=== PATIENT | male | born 1965 | race Caucasian/White ===

== ENCOUNTER 2018-11-21 21:35 | Inpatient (IN) | payer OTHER ==
[2018-11-21] MEDS ORDERED: ACETAMINOPHEN 325 MG TAB PO (22:30)
[2018-11-21] MEDS ORDERED: hydrALAzine 20 MG INJ IV (22:30)
[2018-11-21] MEDS ORDERED: GLUCAGON 1 MG INJ IM (23:00)
[2018-11-21] MEDS ORDERED: DEXTROSE 50% 50 ML SYRINGE IV ×2 (23:00)
[2018-11-21] MEDS ORDERED: GLUCOSE GEL 15 GRAM TUBE BUCCAL (23:00)
[2018-11-21] MEDS ORDERED: GLUCOSE GEL 15 GRAM TUBE PO ×2 (23:00)
[2018-11-21] MEDS: MAGNESIUM OXIDE 400 MG TAB PO (23:30)
[2018-11-21] MEDS: ATORVASTATIN 10 MG TAB PO (23:30)
[2018-11-21] MEDS: FAMOTIDINE 20 MG TAB PO (23:30)
[2018-11-21] MEDS: METOPROLOL 100 MG TAB PO (23:31)
[2018-11-21] MEDS: LEVETIRACETAM 500 MG TAB PO (23:31)
[2018-11-22 00:01] LABS: ADD UMIC YES; UR ASCORBIC ACID NEGATIVE (NEGATIVE); UR BACTERIA FEW /HPF (NONE SEEN); UR BILIRUBIN (Dip) NEGATIVE (NEGATIVE); UR BLOOD (Dip) NEGATIVE (NEGATIVE); UR CLARITY CLEAR (CLEAR); UR COLOR STRAW (YELLOW); UR GLUCOSE (Dip) 1+ mg/dL (NEGATIVE); UR KETONES (Dip) NEGATIVE (NEGATIVE); UR LEUKOCYTE ESTERASE (Dip) NEGATIVE Leu/ul (NEGATIVE); UR NITRITE (Dip) NEGATIVE (NEGATIVE); UR RBC 0 /HPF (0-5); UR SPECIFIC GRAVITY (Dip) 1.008 (1.003-1.030); UR TOTAL PROTEIN (Dip) 2+ mg/dl (NEGATIVE); UR UROBILINOGEN (Dip) NEGATIVE (NEGATIVE); UR WBC 0 /HPF (0-5)
[2018-11-22] MEDS: ACCU-CHEK XX (02:00)
[2018-11-22 06:19] LABS: ADD MAN DIFF? NO
[2018-11-22 06:40] LABS: WHITE BLOOD COUNT 12.3 10^3/ul (4.8-10.8)
[2018-11-22 06:40] LABS: BASOPHIL # 0.1 10^3/ul (0.0-0.1); BASOPHILS % 0.8 % (0.0-2.0); EOSINOPHILS # 0.7 10^3/ul (0.0-0.5); EOSINOPHILS % 5.4 % (0.0-7.0); HEMOGLOBIN 11.8 g/dl (14.0-18.0); LYMPHOCYTES % 23.9 % (15.0-51.0); MEAN CORPUSCULAR HEMOGLOBIN 29.5 pg (29.0-33.0); MEAN CORPUSCULAR HGB CONC 36.9 g/dl (32.0-37.0); MEAN PLATELET VOLUME 9.5 fl (7.4-10.4); MONOCYTES % 8.4 % (0.0-11.0); NEUTROPHIL # 7.6 10^3/ul (1.6-7.5); NEUTROPHILS % 61.3 % (39.0-77.0); PLATELET COUNT 179 10^3/UL (140-415); RED CELL DISTRIBUTION WIDTH 11.8 % (11.5-14.5)
[2018-11-22 06:50] LABS: HEMOGLOBIN A1C 8.4 % (0-5.9)
[2018-11-22] MEDS ORDERED: glipiZIDE 5 MG TAB GTB (07:05)
[2018-11-22 07:19] LABS: ALANINE AMINOTRANSFERASE 28 IU/L (13-69); ALBUMIN 3.4 g/dl (3.3-4.9); ALBUMIN/GLOBULIN RATIO 0.87; ALKALINE PHOSPHATASE 82 IU/L (42-121); ANION GAP 8 (5-13); ASPARTATE AMINO TRANSFERASE 26 IU/L (15-46); BILIRUBIN,INDIRECT 0.4 mg/dl (0-1.1); BILIRUBIN,TOTAL 0.4 mg/dl (0.2-1.3); BLOOD UREA NITROGEN 12 mg/dl (7-20); CARBON DIOXIDE 30 mmol/L (21-31); CHLORIDE 96 mmol/L (97-110); CREATININE 0.68 mg/dl (0.61-1.24); Estimated GFR > 60 mL/min (>60); GLUCOSE 168 mg/dl (70-220); SODIUM 134 mmol/L (135-144); TOTAL PROTEIN 7.3 g/dl (6.1-8.1)
[2018-11-22] MEDS: METOPROLOL 100 MG TAB PO ×2 (07:19→21:02)
[2018-11-22] MEDS: metFORMIN 500 MG TAB PO ×2 (07:57→17:40)
[2018-11-22] MEDS: INSULIN ASPART [NOVOLOG] 3 ML PEN SC ×4 (07:59→20:58)
[2018-11-22] MEDS: MAGNESIUM OXIDE 400 MG TAB PO ×2 (08:52→21:02)
[2018-11-22] MEDS: HYDROCHLOROTHIAZIDE 12.5 MG CAP PO (08:54)
[2018-11-22] MEDS: DOCUSATE SODIUM 100 MG CAP PO ×2 (08:55→21:01)
[2018-11-22] MEDS: LEVETIRACETAM 500 MG TAB PO ×2 (08:55→21:02)
[2018-11-22] MEDS: AMLODIPINE 10 MG TAB PO (08:55)
[2018-11-22] MEDS: FAMOTIDINE 20 MG TAB PO ×2 (08:55→21:02)
[2018-11-22] MEDS: ATORVASTATIN 10 MG TAB PO (21:02)
[2018-11-22] MEDS: SENNA TAB PO (21:02)
[2018-11-22] MEDS: VITAMIN A & D 5 GM OINT PACKET TOP (21:03)
[2018-11-23] MEDS: ACCU-CHEK XX (02:07)
[2018-11-23] MEDS: metFORMIN 500 MG TAB PO ×2 (07:37→17:14)
[2018-11-23] MEDS: INSULIN ASPART [NOVOLOG] 3 ML PEN SC ×4 (07:39→20:33)
[2018-11-23] MEDS: METOPROLOL 100 MG TAB PO ×2 (08:07→20:31)
[2018-11-23] MEDS: DOCUSATE SODIUM 100 MG CAP PO ×2 (08:07→20:30)
[2018-11-23] MEDS: HYDROCHLOROTHIAZIDE 12.5 MG CAP PO (08:07)
[2018-11-23] MEDS: MAGNESIUM OXIDE 400 MG TAB PO ×2 (08:07→20:30)
[2018-11-23] MEDS: VITAMIN A & D 5 GM OINT PACKET TOP ×2 (08:07→20:30)
[2018-11-23] MEDS: LEVETIRACETAM 500 MG TAB PO ×2 (08:07→20:30)
[2018-11-23] MEDS: AMLODIPINE 10 MG TAB PO (08:08)
[2018-11-23] MEDS ORDERED: ZOLPIDEM 5 MG TAB PO (08:30)
[2018-11-23] MEDS: FAMOTIDINE 20 MG TAB PO ×2 (09:53→20:30)
[2018-11-23] MEDS: ATORVASTATIN 10 MG TAB PO (20:30)
[2018-11-23] MEDS: SENNA TAB PO (20:30)
[2018-11-24] MEDS: ACCU-CHEK XX ×4 (02:11→21:00)
[2018-11-24] MEDS: metFORMIN 500 MG TAB PO ×2 (07:43→17:40)
[2018-11-24] MEDS: INSULIN ASPART [NOVOLOG] 3 ML PEN SC ×4 (07:46→20:24)
[2018-11-24] MEDS: DOCUSATE SODIUM 100 MG CAP PO ×2 (08:31→20:18)
[2018-11-24] MEDS: MAGNESIUM OXIDE 400 MG TAB PO ×2 (08:32→20:18)
[2018-11-24] MEDS: LINAGLIPTIN 5 MG TABLET PO (08:32)
[2018-11-24] MEDS: FAMOTIDINE 20 MG TAB PO ×2 (08:32→20:18)
[2018-11-24] MEDS: LEVETIRACETAM 500 MG TAB PO ×2 (08:32→20:17)
[2018-11-24] MEDS: AMLODIPINE 10 MG TAB PO (08:32)
[2018-11-24] MEDS: METOPROLOL 100 MG TAB PO ×2 (08:33→20:19)
[2018-11-24] MEDS: HYDROCHLOROTHIAZIDE 12.5 MG CAP PO (08:33)
[2018-11-24] MEDS: VITAMIN A & D 5 GM OINT PACKET TOP ×2 (08:33→20:19)
[2018-11-24] MEDS: SENNA TAB PO (20:17)
[2018-11-24] MEDS: ATORVASTATIN 10 MG TAB PO (20:18)
[2018-11-25] MEDS: ACCU-CHEK XX ×8 (02:00→21:13)
[2018-11-25 07:10] LABS: ADD MAN DIFF? NO
[2018-11-25 07:13] LABS: WHITE BLOOD COUNT 11.2 10^3/ul (4.8-10.8)
[2018-11-25 07:13] LABS: BASOPHIL # 0.1 10^3/ul (0.0-0.1); BASOPHILS % 0.8 % (0.0-2.0); EOSINOPHILS # 0.7 10^3/ul (0.0-0.5); EOSINOPHILS % 6.2 % (0.0-7.0); HEMATOCRIT 31.2 % (42.0-52.0); HEMOGLOBIN 11.5 g/dl (14.0-18.0); LYMPHOCYTES % 26.5 % (15.0-51.0); MEAN CORPUSCULAR HEMOGLOBIN 28.8 pg (29.0-33.0); MEAN CORPUSCULAR HGB CONC 36.9 g/dl (32.0-37.0); MEAN CORPUSCULAR VOLUME 78.2 fl (82.0-101.0); MEAN PLATELET VOLUME 9.2 fl (7.4-10.4); MONOCYTE # 0.9 10^3/ul (0.3-0.9); MONOCYTES % 8.1 % (0.0-11.0); NEUTROPHIL # 6.5 10^3/ul (1.6-7.5); PLATELET COUNT 180 10^3/UL (140-415); RED BLOOD COUNT 3.99 10^6/ul (4.70-6.10); RED CELL DISTRIBUTION WIDTH 11.8 % (11.5-14.5)
[2018-11-25 07:31] LABS: ANION GAP 10 (5-13); BLOOD UREA NITROGEN 16 mg/dl (7-20); CALCIUM 9.2 mg/dl (8.4-10.2); CARBON DIOXIDE 27 mmol/L (21-31); CHLORIDE 99 mmol/L (97-110); CREATININE 0.64 mg/dl (0.61-1.24); Estimated GFR > 60 mL/min (>60); GLUCOSE 202 mg/dl (70-220); PHOSPHORUS 4.8 mg/dl (2.5-4.9); POTASSIUM 3.8 mmol/L (3.5-5.1); SODIUM 136 mmol/L (135-144)
[2018-11-25 07:32] LABS: MAGNESIUM 1.7 mg/dl (1.7-2.5)
[2018-11-25] MEDS: INSULIN ASPART [NOVOLOG] 3 ML PEN SC ×4 (07:53→21:00)
[2018-11-25] MEDS: AMLODIPINE 10 MG TAB PO (08:07)
[2018-11-25] MEDS: METOPROLOL 100 MG TAB PO ×2 (08:07→21:06)
[2018-11-25] MEDS: LEVETIRACETAM 500 MG TAB PO ×2 (08:07→21:05)
[2018-11-25] MEDS: DOCUSATE SODIUM 100 MG CAP PO ×2 (08:07→21:05)
[2018-11-25] MEDS: MAGNESIUM OXIDE 400 MG TAB PO ×2 (08:07→21:05)
[2018-11-25] MEDS: VITAMIN A & D 5 GM OINT PACKET TOP ×2 (08:08→21:05)
[2018-11-25] MEDS: LINAGLIPTIN 5 MG TABLET PO (08:08)
[2018-11-25] MEDS: HYDROCHLOROTHIAZIDE 12.5 MG CAP PO (08:08)
[2018-11-25] MEDS: FAMOTIDINE 20 MG TAB PO ×2 (08:08→21:05)
[2018-11-25] MEDS: REPAGLINIDE 1 MG TAB PO ×2 (12:03→17:23)
[2018-11-25] MEDS: metFORMIN 500 MG TAB PO (17:24)
[2018-11-25] MEDS: SENNA TAB PO (21:05)
[2018-11-25] MEDS: ATORVASTATIN 10 MG TAB PO (21:05)
[2018-11-26] MEDS: ACCU-CHEK XX ×9 (02:00→21:19)
[2018-11-26] MEDS: REPAGLINIDE 1 MG TAB PO ×3 (07:47→17:22)
[2018-11-26] MEDS: metFORMIN 500 MG TAB PO ×2 (07:47→17:23)
[2018-11-26] MEDS: INSULIN ASPART [NOVOLOG] 3 ML PEN SC ×4 (07:51→21:00)
[2018-11-26] MEDS: VITAMIN A & D 5 GM OINT PACKET TOP ×2 (08:49→21:11)
[2018-11-26] MEDS: HYDROCHLOROTHIAZIDE 12.5 MG CAP PO (08:50)
[2018-11-26] MEDS: LINAGLIPTIN 5 MG TABLET PO (08:50)
[2018-11-26] MEDS: FAMOTIDINE 20 MG TAB PO ×2 (08:50→21:13)
[2018-11-26] MEDS: METOPROLOL 100 MG TAB PO ×2 (08:50→21:13)
[2018-11-26] MEDS: LEVETIRACETAM 500 MG TAB PO ×2 (08:50→21:12)
[2018-11-26] MEDS: DOCUSATE SODIUM 100 MG CAP PO ×2 (08:51→21:13)
[2018-11-26] MEDS: MAGNESIUM OXIDE 400 MG TAB PO ×2 (08:51→21:12)
[2018-11-26] MEDS: AMLODIPINE 10 MG TAB PO (08:51)
[2018-11-26] MEDS: SENNA TAB PO (21:12)
[2018-11-26] MEDS: ATORVASTATIN 10 MG TAB PO (21:12)
[2018-11-27] MEDS: ACCU-CHEK XX ×9 (02:00→21:31)
[2018-11-27] MEDS: metFORMIN 500 MG TAB PO ×2 (07:46→17:39)
[2018-11-27] MEDS: INSULIN ASPART [NOVOLOG] 3 ML PEN SC ×4 (07:47→21:00)
[2018-11-27] MEDS: REPAGLINIDE 1 MG TAB PO ×3 (07:51→17:39)
[2018-11-27] MEDS: LINAGLIPTIN 5 MG TABLET PO (07:51)
[2018-11-27] MEDS: LEVETIRACETAM 500 MG TAB PO ×2 (08:51→21:25)
[2018-11-27] MEDS: DOCUSATE SODIUM 100 MG CAP PO ×2 (08:51→21:25)
[2018-11-27] MEDS: VITAMIN A & D 5 GM OINT PACKET TOP ×2 (08:51→21:30)
[2018-11-27] MEDS: AMLODIPINE 10 MG TAB PO (08:52)
[2018-11-27] MEDS: METOPROLOL 100 MG TAB PO ×2 (08:52→21:31)
[2018-11-27] MEDS: MAGNESIUM OXIDE 400 MG TAB PO ×2 (08:52→21:25)
[2018-11-27] MEDS: FAMOTIDINE 20 MG TAB PO ×2 (08:52→21:25)
[2018-11-27] MEDS: HYDROCHLOROTHIAZIDE 12.5 MG CAP PO (08:52)
[2018-11-27] MEDS: SENNA TAB PO (21:25)
[2018-11-27] MEDS: ATORVASTATIN 10 MG TAB PO (21:25)
[2018-11-27] MEDS ORDERED: MAGNESIUM HYDROXIDE 30ML CUP PO (21:30)
[2018-11-27] MEDS ORDERED: LACTULOSE 30ML CUP PO (21:30)
[2018-11-27] MEDS ORDERED: BISACODYL 10 MG SUPP PR (21:30)
[2018-11-28] MEDS: ACCU-CHEK XX ×5 (02:00→21:07)
[2018-11-28] MEDS: metFORMIN 500 MG TAB PO ×2 (08:09→17:31)
[2018-11-28] MEDS: LEVETIRACETAM 500 MG TAB PO ×2 (08:10→20:43)
[2018-11-28] MEDS: LINAGLIPTIN 5 MG TABLET PO (08:10)
[2018-11-28] MEDS: FAMOTIDINE 20 MG TAB PO ×2 (08:10→20:41)
[2018-11-28] MEDS: DOCUSATE SODIUM 100 MG CAP PO ×2 (08:11→20:41)
[2018-11-28] MEDS: MAGNESIUM OXIDE 400 MG TAB PO ×2 (08:11→20:41)
[2018-11-28] MEDS: METOPROLOL 100 MG TAB PO ×2 (08:12→20:43)
[2018-11-28] MEDS: VITAMIN A & D 5 GM OINT PACKET TOP ×2 (08:14→20:43)
[2018-11-28] MEDS: INSULIN ASPART [NOVOLOG] 3 ML PEN SC ×4 (08:19→20:46)
[2018-11-28] MEDS: HYDROCHLOROTHIAZIDE 12.5 MG CAP PO (08:20)
[2018-11-28] MEDS: REPAGLINIDE 1 MG TAB PO ×3 (08:20→17:31)
[2018-11-28] MEDS: AMLODIPINE 10 MG TAB PO (08:21)
[2018-11-28] MEDS: SENNA TAB PO (20:41)
[2018-11-28] MEDS: ATORVASTATIN 10 MG TAB PO (20:41)
[2018-11-29] MEDS: ACCU-CHEK XX ×5 (02:00→21:03)
[2018-11-29 06:39] LABS: ADD MAN DIFF? NO
[2018-11-29 06:45] LABS: WHITE BLOOD COUNT 9.8 10^3/ul (4.8-10.8)
[2018-11-29 06:45] LABS: BASOPHIL # 0.1 10^3/ul (0.0-0.1); BASOPHILS % 0.9 % (0.0-2.0); EOSINOPHILS # 0.7 10^3/ul (0.0-0.5); EOSINOPHILS % 7.2 % (0.0-7.0); HEMATOCRIT 31.5 % (42.0-52.0); HEMOGLOBIN 11.6 g/dl (14.0-18.0); LYMPHOCYTES # 2.9 10^3/ul (0.8-2.9); LYMPHOCYTES % 29.9 % (15.0-51.0); MEAN CORPUSCULAR HEMOGLOBIN 28.7 pg (29.0-33.0); MEAN CORPUSCULAR HGB CONC 36.8 g/dl (32.0-37.0); MEAN PLATELET VOLUME 9.6 fl (7.4-10.4); MONOCYTE # 0.9 10^3/ul (0.3-0.9); MONOCYTES % 8.8 % (0.0-11.0); NEUTROPHIL # 5.2 10^3/ul (1.6-7.5); NEUTROPHILS % 52.8 % (39.0-77.0); PLATELET COUNT 207 10^3/UL (140-415); RED BLOOD COUNT 4.04 10^6/ul (4.70-6.10); RED CELL DISTRIBUTION WIDTH 11.9 % (11.5-14.5)
[2018-11-29] MEDS: INSULIN ASPART [NOVOLOG] 3 ML PEN SC ×4 (07:35→20:19)
[2018-11-29] MEDS: metFORMIN 500 MG TAB PO ×2 (07:42→17:29)
[2018-11-29] MEDS: REPAGLINIDE 1 MG TAB PO ×3 (07:46→17:30)
[2018-11-29] MEDS: DOCUSATE SODIUM 100 MG CAP PO ×2 (08:22→20:16)
[2018-11-29] MEDS: LEVETIRACETAM 500 MG TAB PO ×2 (08:22→20:16)
[2018-11-29] MEDS: HYDROCHLOROTHIAZIDE 12.5 MG CAP PO (08:22)
[2018-11-29] MEDS: FAMOTIDINE 20 MG TAB PO ×2 (08:23→20:16)
[2018-11-29] MEDS: LINAGLIPTIN 5 MG TABLET PO (08:23)
[2018-11-29] MEDS: MAGNESIUM OXIDE 400 MG TAB PO ×2 (08:23→20:16)
[2018-11-29] MEDS: METOPROLOL 100 MG TAB PO ×2 (08:23→20:18)
[2018-11-29] MEDS: AMLODIPINE 10 MG TAB PO (08:23)
[2018-11-29] MEDS: VITAMIN A & D 5 GM OINT PACKET TOP ×2 (08:24→20:16)
[2018-11-29] MEDS: SENNA TAB PO (20:16)
[2018-11-29] MEDS: ATORVASTATIN 10 MG TAB PO (20:16)
[2018-11-30] MEDS: ACCU-CHEK XX ×5 (02:00→21:00)
[2018-11-30] MEDS: INSULIN ASPART [NOVOLOG] 3 ML PEN SC ×4 (07:48→21:00)
[2018-11-30] MEDS: DOCUSATE SODIUM 100 MG CAP PO ×2 (08:30→21:06)
[2018-11-30] MEDS: FAMOTIDINE 20 MG TAB PO ×2 (08:30→21:06)
[2018-11-30] MEDS: VITAMIN A & D 5 GM OINT PACKET TOP ×2 (08:30→21:19)
[2018-11-30] MEDS: metFORMIN 500 MG TAB PO ×2 (08:30→17:22)
[2018-11-30] MEDS: LEVETIRACETAM 500 MG TAB PO ×2 (08:31→21:06)
[2018-11-30] MEDS: MAGNESIUM OXIDE 400 MG TAB PO ×2 (08:31→21:06)
[2018-11-30] MEDS: HYDROCHLOROTHIAZIDE 12.5 MG CAP PO (08:31)
[2018-11-30] MEDS: AMLODIPINE 10 MG TAB PO (08:31)
[2018-11-30] MEDS: LINAGLIPTIN 5 MG TABLET PO (08:32)
[2018-11-30] MEDS: REPAGLINIDE 1 MG TAB PO ×3 (08:32→17:22)
[2018-11-30] MEDS: METOPROLOL 100 MG TAB PO ×2 (08:34→21:06)
[2018-11-30] MEDS: ATORVASTATIN 10 MG TAB PO (21:06)
[2018-11-30] MEDS: SENNA TAB PO (21:06)
[2018-12-01] MEDS: ACCU-CHEK XX ×5 (02:00→21:00)
[2018-12-01] MEDS: REPAGLINIDE 1 MG TAB PO ×3 (07:49→17:34)
[2018-12-01] MEDS: metFORMIN 500 MG TAB PO ×2 (07:50→17:34)
[2018-12-01] MEDS: INSULIN ASPART [NOVOLOG] 3 ML PEN SC ×4 (07:54→21:00)
[2018-12-01] MEDS: DOCUSATE SODIUM 100 MG CAP PO ×2 (09:04→20:37)
[2018-12-01] MEDS: HYDROCHLOROTHIAZIDE 12.5 MG CAP PO (09:05)
[2018-12-01] MEDS: LEVETIRACETAM 500 MG TAB PO ×2 (09:05→20:37)
[2018-12-01] MEDS: VITAMIN A & D 5 GM OINT PACKET TOP ×2 (09:06→20:38)
[2018-12-01] MEDS: LINAGLIPTIN 5 MG TABLET PO (09:06)
[2018-12-01] MEDS: FAMOTIDINE 20 MG TAB PO ×2 (09:06→20:37)
[2018-12-01] MEDS: METOPROLOL 100 MG TAB PO ×2 (09:06→20:36)
[2018-12-01] MEDS: MAGNESIUM OXIDE 400 MG TAB PO ×2 (09:06→20:36)
[2018-12-01] MEDS: AMLODIPINE 10 MG TAB PO (09:06)
[2018-12-01] MEDS: ATORVASTATIN 10 MG TAB PO (20:36)
[2018-12-01] MEDS: SENNA TAB PO (20:37)
[2018-12-02] MEDS: ACCU-CHEK XX ×5 (02:00→21:23)
[2018-12-02] MEDS: INSULIN ASPART [NOVOLOG] 3 ML PEN SC ×4 (07:35→21:00)
[2018-12-02] MEDS: MAGNESIUM OXIDE 400 MG TAB PO ×2 (08:25→21:22)
[2018-12-02] MEDS: LINAGLIPTIN 5 MG TABLET PO (08:25)
[2018-12-02] MEDS: FAMOTIDINE 20 MG TAB PO ×2 (08:25→21:22)
[2018-12-02] MEDS: VITAMIN A & D 5 GM OINT PACKET TOP (08:25)
[2018-12-02] MEDS: DOCUSATE SODIUM 100 MG CAP PO ×2 (08:25→21:21)
[2018-12-02] MEDS: metFORMIN 500 MG TAB PO ×2 (08:25→17:30)
[2018-12-02] MEDS: HYDROCHLOROTHIAZIDE 12.5 MG CAP PO (08:26)
[2018-12-02] MEDS: METOPROLOL 100 MG TAB PO ×2 (08:26→21:29)
[2018-12-02] MEDS: LEVETIRACETAM 500 MG TAB PO ×2 (08:26→21:21)
[2018-12-02] MEDS: AMLODIPINE 10 MG TAB PO (08:27)
[2018-12-02] MEDS: REPAGLINIDE 1 MG TAB PO ×3 (08:30→17:31)
[2018-12-02] MEDS: SENNA TAB PO (21:00)
[2018-12-02] MEDS ORDERED: PETROLATUM 28.35 GM JELLY TOP (21:00)
[2018-12-02] MEDS: ATORVASTATIN 10 MG TAB PO (21:21)
[2018-12-02] MEDS: PETROLATUM 28.35 GM JELLY TOP (21:22)
[2018-12-03] MEDS: ACCU-CHEK XX ×5 (02:00→21:09)
[2018-12-03] MEDS: INSULIN ASPART [NOVOLOG] 3 ML PEN SC ×4 (07:35→21:00)
[2018-12-03] MEDS: REPAGLINIDE 1 MG TAB PO ×3 (08:09→17:20)
[2018-12-03] MEDS: metFORMIN 500 MG TAB PO ×2 (08:09→17:20)
[2018-12-03] MEDS: DOCUSATE SODIUM 100 MG CAP PO ×2 (08:29→21:00)
[2018-12-03] MEDS: METOPROLOL 100 MG TAB PO ×2 (08:30→21:09)
[2018-12-03] MEDS: LEVETIRACETAM 500 MG TAB PO ×2 (08:30→21:08)
[2018-12-03] MEDS: HYDROCHLOROTHIAZIDE 12.5 MG CAP PO (08:30)
[2018-12-03] MEDS: MAGNESIUM OXIDE 400 MG TAB PO ×2 (08:30→21:08)
[2018-12-03] MEDS: FAMOTIDINE 20 MG TAB PO ×2 (08:31→21:08)
[2018-12-03] MEDS: LINAGLIPTIN 5 MG TABLET PO (08:31)
[2018-12-03] MEDS: AMLODIPINE 10 MG TAB PO (08:31)
[2018-12-03] MEDS: PETROLATUM 28.35 GM JELLY TOP ×2 (08:35→21:16)
[2018-12-03] MEDS: SENNA TAB PO (21:00)
[2018-12-03] MEDS: ATORVASTATIN 10 MG TAB PO (21:08)
[2018-12-04] MEDS: ACCU-CHEK XX ×5 (02:00→21:26)
[2018-12-04] MEDS: INSULIN ASPART [NOVOLOG] 3 ML PEN SC ×4 (07:35→21:00)
[2018-12-04] MEDS: REPAGLINIDE 1 MG TAB PO ×3 (07:47→17:55)
[2018-12-04] MEDS: LINAGLIPTIN 5 MG TABLET PO (07:48)
[2018-12-04] MEDS: metFORMIN 500 MG TAB PO ×2 (07:48→17:55)
[2018-12-04] MEDS: MAGNESIUM OXIDE 400 MG TAB PO ×2 (08:32→21:24)
[2018-12-04] MEDS: LEVETIRACETAM 500 MG TAB PO ×2 (08:32→21:25)
[2018-12-04] MEDS: METOPROLOL 100 MG TAB PO ×2 (08:32→21:25)
[2018-12-04] MEDS: AMLODIPINE 10 MG TAB PO (08:32)
[2018-12-04] MEDS: HYDROCHLOROTHIAZIDE 12.5 MG CAP PO (08:32)
[2018-12-04] MEDS: FAMOTIDINE 20 MG TAB PO ×2 (08:32→21:25)
[2018-12-04] MEDS: PETROLATUM 28.35 GM JELLY TOP ×2 (08:33→21:30)
[2018-12-04] MEDS: DOCUSATE SODIUM 100 MG CAP PO ×2 (08:35→21:00)
[2018-12-04] MEDS: SENNA TAB PO (21:00)
[2018-12-04] MEDS: ATORVASTATIN 10 MG TAB PO (21:25)
[2018-12-05] MEDS: ACCU-CHEK XX ×5 (02:00→20:39)
[2018-12-05] MEDS: INSULIN ASPART [NOVOLOG] 3 ML PEN SC ×4 (07:35→20:39)
[2018-12-05] MEDS: REPAGLINIDE 1 MG TAB PO ×3 (07:44→17:32)
[2018-12-05] MEDS: metFORMIN 500 MG TAB PO ×2 (07:45→17:33)
[2018-12-05] MEDS: LINAGLIPTIN 5 MG TABLET PO (07:45)
[2018-12-05] MEDS: DOCUSATE SODIUM 100 MG CAP PO ×2 (08:10→20:34)
[2018-12-05] MEDS: METOPROLOL 100 MG TAB PO ×2 (08:10→20:34)
[2018-12-05] MEDS: MAGNESIUM OXIDE 400 MG TAB PO ×2 (08:10→20:34)
[2018-12-05] MEDS: LEVETIRACETAM 500 MG TAB PO ×2 (08:10→20:34)
[2018-12-05] MEDS: HYDROCHLOROTHIAZIDE 12.5 MG CAP PO (08:11)
[2018-12-05] MEDS: FAMOTIDINE 20 MG TAB PO ×2 (08:11→20:33)
[2018-12-05] MEDS: AMLODIPINE 10 MG TAB PO (08:11)
[2018-12-05] MEDS: PETROLATUM 28.35 GM JELLY TOP ×2 (08:14→20:39)
[2018-12-05] MEDS: ATORVASTATIN 10 MG TAB PO (20:33)
[2018-12-05] MEDS: SENNA TAB PO (20:34)
[2018-12-06] MEDS: ACCU-CHEK XX ×2 (02:00→07:52)
[2018-12-06] MEDS: INSULIN ASPART [NOVOLOG] 3 ML PEN SC (07:35)
[2018-12-06] MEDS: LINAGLIPTIN 5 MG TABLET PO (08:52)
[2018-12-06] MEDS: DOCUSATE SODIUM 100 MG CAP PO ×2 (08:52→09:00)
[2018-12-06] MEDS: LEVETIRACETAM 500 MG TAB PO (08:52)
[2018-12-06] MEDS: metFORMIN 500 MG TAB PO (08:52)
[2018-12-06] MEDS: FAMOTIDINE 20 MG TAB PO (08:53)
[2018-12-06] MEDS: AMLODIPINE 10 MG TAB PO (08:53)
[2018-12-06] MEDS: MAGNESIUM OXIDE 400 MG TAB PO (08:53)
[2018-12-06] MEDS: METOPROLOL 100 MG TAB PO (08:53)
[2018-12-06] MEDS: HYDROCHLOROTHIAZIDE 12.5 MG CAP PO (08:53)
[2018-12-06] MEDS: REPAGLINIDE 1 MG TAB PO (08:58)
[2018-12-06] MEDS: PETROLATUM 28.35 GM JELLY TOP (09:00)
== END 2018-12-06 11:25 | disposition home health service (06) | DRG 57 ==
LOC: VRC 21:35
PROC: F07Z5ZZ Bed Mobility Treatment (ICD-10-PCS; principal; 2018-11-22)
PROC: F07Z8ZZ Transfer Training Treatment (ICD-10-PCS; 2018-11-22)
PROC: F07Z9ZZ Gait Training/Functional Ambulation Treatment (ICD-10-PCS; 2018-11-22)
PROC: F08Z1ZZ Dressing Techniques Treatment (ICD-10-PCS; 2018-11-22)
PROC: F08Z0ZZ Bathing/Showering Techniques Treatment (ICD-10-PCS; 2018-11-22)
PROC: F08Z1ZZ Dressing Techniques Treatment (ICD-10-PCS; 2018-11-22)
PROC: F08Z2ZZ Grooming/Personal Hygiene Treatment (ICD-10-PCS; 2018-11-22)
DX: I69.154 Hemiplegia and hemiparesis following nontraumatic intracerebral hemorrhage affecting left non-dominant side (principal); E87.1 Hypo-osmolality and hyponatremia; I69.254 Hemiplegia and hemiparesis following other nontraumatic intracranial hemorrhage affecting left non-dominant side; I10 Essential (primary) hypertension; E11.9 Type 2 diabetes mellitus without complications; D64.9 Anemia, unspecified; R53.81 Other malaise
CPT/HCPCS: 80048; 80053; 81001; 82962; 83036; 83735; 84100; 85025; 87081; 87086; 92507; 92523; 97110; 97112; 97116; 97163; 97167; 97530; 97535; 97542